=== PATIENT | female | born 1945 | race Asian ===

== ENCOUNTER 2019-11-15 04:25 | Observation (INO) | payer OTHER ==
[~2019-11-15] VITALS: Ht 162.6 cm; Wt 72.1 kg
[2019-11-15 04:33] VITALS: Ht 162.6 cm; Wt 72.1 kg
[2019-11-15 05:21] LABS: BASOPHIL % 0.3 % (0-2); PLATELET COUNT 182 x10^3mcL (130-400); RED CELL DISTRIBUTION WIDTH 12.3 % (11.5-14.5)
[2019-11-15 05:29] LABS: ALBUMIN 3.3 g/dL (3.4-5.0); ALKALINE PHOSPHATASE 182 U/L (46-116); ALT/SGPT 58 U/L (14-59); AST/SGOT 44 U/L (15-37); BILIRUBIN TOTAL 1.18 mg/dL (0.20-1.00); CALCIUM 9.1 mg/dL (8.5-10.1); CARBON DIOXIDE 23.5 mmol/L (21-32); CHLORIDE SERUM 94 mmol/L (98-107); POTASSIUM SERUM 3.7 mmol/L (3.5-5.1); SODIUM SERUM 128 mmol/L (136-145); TOTAL PROTEIN, SERUM 7.8 g/dL (6.4-8.2)
[2019-11-15 05:30] LABS: GLUCOSE SERUM 479 mg/dL (74-106)
[2019-11-15] MEDS ORDERED: ULTRAM50 MG (09:34)
[2019-11-15] MEDS ORDERED: FORTAMET500 M1 (09:34)
[2019-11-15 11:24] VITALS: BP 132/79
[2019-11-15 11:58] VITALS: BP 131/72
[2019-11-15 16:29] VITALS: BP 119/64
[2019-11-15 20:22] VITALS: BP 119/55
[2019-11-16 05:41] VITALS: BP 118/58
[2019-11-16 07:02] LABS: ALKALINE PHOSPHATASE 136 U/L (46-116); ALT/SGPT 43 U/L (14-59); AST/SGOT 29 U/L (15-37); BILIRUBIN TOTAL 1.03 mg/dL (0.20-1.00); CALCIUM 7.8 mg/dL (8.5-10.1); CARBON DIOXIDE 25.8 mmol/L (21-32); CHLORIDE SERUM 105 mmol/L (98-107); CREATININE SERUM 0.8 mg/dL (0.6-1.0); GLUCOSE SERUM 240 mg/dL (74-106); POTASSIUM SERUM 3.4 mmol/L (3.5-5.1); SODIUM SERUM 138 mmol/L (136-145); TOTAL PROTEIN, SERUM 6.7 g/dL (6.4-8.2)
[2019-11-16 07:05] LABS: ALBUMIN 2.5 g/dL (3.4-5.0)
[2019-11-16 07:15] LABS: BASOPHIL % 0.3 % (0-2); PLATELET COUNT 157 x10^3mcL (130-400); RED CELL DISTRIBUTION WIDTH 12.7 % (11.5-14.5)
[2019-11-16 08:12] VITALS: BP 125/61
[2019-11-16 11:43] VITALS: BP 131/67
[2019-11-16 15:22] VITALS: BP 131/67
[2019-11-16 16:04] VITALS: BP 125/54
== END 2019-11-16 16:32 | disposition home health service (06) ==
LOC: ED 04:25 → DU 09:03 → MU 09:03
PROVIDERS: Emergency Medicine; ADMIT Hospitalist; ATTEND Hospitalist
DX: S01.01XA Laceration without foreign body of scalp, initial encounter (principal); W19.XXXA Unspecified fall, initial encounter; Z91.81 History of falling; Y93.89 Activity, other specified; Y92.89 Other specified places as the place of occurrence of the external cause; Y99.8 Other external cause status; E11.9 Type 2 diabetes mellitus without complications
CPT/HCPCS: 82962; G0378; J1815; J2001; J7030

== ENCOUNTER 2020-01-11 10:57 | Emergency (ER) | payer OTHER ==
[~2020-01-11] VITALS: Ht 152.4 cm; Wt 68.9 kg
[~2020-01-11 10:57] MED LIST: FORTAMET500 M1; ULTRAM50 MG
[2020-01-11 11:48] VITALS: Ht 152.4 cm; Wt 68.9 kg
[2020-01-11 13:31] LABS: ALKALINE PHOSPHATASE 156 U/L (46-116); ALT/SGPT 63 U/L (14-59); AST/SGOT 39 U/L (15-37); BILIRUBIN TOTAL 0.8 mg/dL (0.20-1.00); CALCIUM 8.5 mg/dL (8.5-10.1); CARBON DIOXIDE 26.7 mmol/L (21-32); CHLORIDE SERUM 96 mmol/L (98-107); CREATININE SERUM 0.8 mg/dL (0.6-1.0); MAGNESIUM 2.1 mg/dL (1.8-2.4); PHOSPHOROUS 3.4 mg/dL (2.5-4.9); POTASSIUM SERUM 4.4 mmol/L (3.5-5.1); SODIUM SERUM 129 mmol/L (136-145); TOTAL PROTEIN, SERUM 6.8 g/dL (6.4-8.2)
[2020-01-11 13:38] LABS: ALBUMIN 3.1 g/dL (3.4-5.0)
[2020-01-11 13:41] LABS: GLUCOSE SERUM 497 mg/dL (74-106)
[2020-01-11 13:46] LABS: BASOPHIL % 0.3 % (0-2); PLATELET COUNT 138 x10^3mcL (130-400); RED CELL DISTRIBUTION WIDTH 12.5 % (11.5-14.5)
[2020-01-11 17:15] VITALS: BP 146/76
== END 2020-01-11 17:15 | disposition home or self-care (01) ==
LOC: ED 10:57
PROVIDERS: Emergency Medicine
DX: E11.65 Type 2 diabetes mellitus with hyperglycemia (principal); I10 Essential (primary) hypertension
CPT/HCPCS: 82962; J1815; J7030

== ENCOUNTER 2020-01-14 08:10 | Emergency (ER) | payer OTHER ==
[~2020-01-14] VITALS: Ht 162.6 cm; Wt 69.9 kg
[2020-01-14 08:27] VITALS: Ht 162.6 cm; Wt 69.9 kg
[2020-01-14 09:06] LABS: BASOPHIL % 0.3 % (0-2); PLATELET COUNT 189 x10^3mcL (130-400); RED CELL DISTRIBUTION WIDTH 12.4 % (11.5-14.5)
[2020-01-14 09:24] LABS: ALKALINE PHOSPHATASE 131 U/L (46-116); ALT/SGPT 49 U/L (14-59); AST/SGOT 65 U/L (15-37); BILIRUBIN TOTAL 1.16 mg/dL (0.20-1.00); CALCIUM 8.9 mg/dL (8.5-10.1); CARBON DIOXIDE 25.7 mmol/L (21-32); CHLORIDE SERUM 97 mmol/L (98-107); CREATININE SERUM 0.7 mg/dL (0.6-1.0); GLUCOSE SERUM 360 mg/dL (74-106); LIPASE 204 IU/L (73-393); SODIUM SERUM 129 mmol/L (136-145)
[2020-01-14 09:30] LABS: ALBUMIN 2.9 g/dL (3.4-5.0)
[2020-01-14 09:37] LABS: POTASSIUM SERUM 5.7 mmol/L (3.5-5.1)
[2020-01-14 11:47] VITALS: BP 128/77
== END 2020-01-14 11:47 | disposition home or self-care (01) ==
LOC: ED 08:10
PROVIDERS: Emergency Medicine
DX: E11.65 Type 2 diabetes mellitus with hyperglycemia (principal); I10 Essential (primary) hypertension
CPT/HCPCS: 82962; J1815; J2405; J7030

== ENCOUNTER 2020-02-15 08:41 | Observation (INO) | payer OTHER ==
[~2020-02-15] VITALS: Ht 157.5 cm; Wt 69.2 kg
[2020-02-15 09:36] LABS: BASOPHIL % 0.9 % (0.2-1.3); PLATELET COUNT 149 x10^3mcL (179-408); RED CELL DISTRIBUTION WIDTH 12.7 % (12.3-17.7)
[2020-02-15 09:41] LABS: CALCIUM 8.6 mg/dL (8.5-10.1); CARBON DIOXIDE 26.7 mmol/L (21-32); CHLORIDE SERUM 97 mmol/L (98-107); CREATININE SERUM 0.8 mg/dL (0.6-1.0); GLUCOSE SERUM 275 mg/dL (74-106); POTASSIUM SERUM 4.3 mmol/L (3.5-5.1); SODIUM SERUM 132 mmol/L (136-145)
[2020-02-15 09:46] LABS: ALKALINE PHOSPHATASE 124 U/L (46-116); ALT/SGPT 44 U/L (14-59); AST/SGOT 24 U/L (15-37); BILIRUBIN TOTAL 0.81 mg/dL (0.20-1.00); TOTAL PROTEIN, SERUM 6.8 g/dL (6.4-8.2)
[2020-02-15 10:00] LABS: ALBUMIN 3.1 g/dL (3.4-5.0)
[2020-02-15 11:06] LABS: UA SPECIFIC GRAVITY 1.015 (1.005-1.035); microscopic required? YES; urine erythrocyte TRACE (NEGATIVE)
[2020-02-15] MEDS ORDERED: TOPROL XL50 MG PO (22:02)
[2020-02-16 01:03] VITALS: BP 115/55
[2020-02-16 05:53] VITALS: BP 119/65
[2020-02-16 07:55] LABS: BASOPHIL % 0.4 % (0.2-1.3); PLATELET COUNT 146 x10^3mcL (179-408)
[2020-02-16 08:07] LABS: ALKALINE PHOSPHATASE 106 U/L (46-116); ALT/SGPT 46 U/L (14-59); AST/SGOT 32 U/L (15-37); BILIRUBIN TOTAL 0.8 mg/dL (0.20-1.00); CALCIUM 7.9 mg/dL (8.5-10.1); CARBON DIOXIDE 24.5 mmol/L (21-32); CHLORIDE SERUM 100 mmol/L (98-107); CREATININE SERUM 0.7 mg/dL (0.6-1.0); GLUCOSE SERUM 233 mg/dL (74-106); MAGNESIUM 1.8 mg/dL (1.8-2.4); POTASSIUM SERUM 3.6 mmol/L (3.5-5.1); SODIUM SERUM 135 mmol/L (136-145); TOTAL PROTEIN, SERUM 6.4 g/dL (6.4-8.2)
[2020-02-16 08:08] LABS: ALBUMIN 2.8 g/dL (3.4-5.0)
[2020-02-16 09:09] VITALS: BP 90/52
[2020-02-16 12:28] VITALS: BP 119/65
[2020-02-16 16:20] VITALS: BP 111/65
[2020-02-16 20:56] VITALS: BP 134/80
[2020-02-16 23:47] VITALS: Ht 157.5 cm; Wt 69.2 kg
[2020-02-17 05:25] VITALS: BP 115/61
[2020-02-17 08:41] VITALS: BP 136/79
[2020-02-17 11:11] LABS: BASOPHIL % 0.6 % (0.2-1.3); RED CELL DISTRIBUTION WIDTH 12.8 % (12.3-17.7)
[2020-02-17 11:46] LABS: ALBUMIN 2.4 g/dL (3.4-5.0); ALKALINE PHOSPHATASE 94 U/L (46-116); ALT/SGPT 51 U/L (14-59); AST/SGOT 49 U/L (15-37); BILIRUBIN TOTAL 0.83 mg/dL (0.20-1.00); CALCIUM 8.1 mg/dL (8.5-10.1); CARBON DIOXIDE 21.5 mmol/L (21-32); CHLORIDE SERUM 105 mmol/L (98-107); CREATININE SERUM 0.5 mg/dL (0.6-1.0); GLUCOSE SERUM 251 mg/dL (74-106); MAGNESIUM 1.9 mg/dL (1.8-2.4); POTASSIUM SERUM 4.2 mmol/L (3.5-5.1); SODIUM SERUM 137 mmol/L (136-145); TOTAL PROTEIN, SERUM 6.1 g/dL (6.4-8.2)
[2020-02-17 12:24] VITALS: BP 135/75
[2020-02-17 12:49] LABS: PLATELET COUNT 85 x10^3mcL (179-408)
[2020-02-17] MEDS ORDERED: DEXAMETHASONE6 MG PO (13:59)
[2020-02-17] MEDS ORDERED: VITAMIN C500 M6 PO (14:01)
[2020-02-17] MEDS ORDERED: ELIQUIS5 MG PO (14:01)
[2020-02-17] MEDS ORDERED: ZINC50 M5 PO (14:02)
[2020-02-17 16:19] VITALS: BP 147/75
[2020-02-18 01:25] VITALS: BP 136/79
[2020-02-18 09:21] LABS: BASOPHIL % 0.4 % (0.2-1.3); PLATELET COUNT 148 x10^3mcL (179-408); RED CELL DISTRIBUTION WIDTH 12.8 % (12.3-17.7)
[2020-02-18 09:49] LABS: ALBUMIN 2.6 g/dL (3.4-5.0); ALKALINE PHOSPHATASE 95 U/L (46-116); ALT/SGPT 49 U/L (14-59); AST/SGOT 27 U/L (15-37); BILIRUBIN TOTAL 0.79 mg/dL (0.20-1.00); CALCIUM 8.1 mg/dL (8.5-10.1); CARBON DIOXIDE 25.8 mmol/L (21-32); CHLORIDE SERUM 105 mmol/L (98-107); CREATININE SERUM 0.6 mg/dL (0.6-1.0); GLUCOSE SERUM 209 mg/dL (74-106); MAGNESIUM 1.8 mg/dL (1.8-2.4); POTASSIUM SERUM 3.4 mmol/L (3.5-5.1); SODIUM SERUM 139 mmol/L (136-145); TOTAL PROTEIN, SERUM 6.2 g/dL (6.4-8.2)
[2020-02-18 09:54] VITALS: BP 125/62
[2020-02-18 13:25] VITALS: BP 146/72
[2020-02-18 17:19] VITALS: BP 116/79
[2020-02-18 21:39] VITALS: BP 136/80
[2020-02-19 05:55] VITALS: BP 99/60
[2020-02-19 08:22] LABS: ALKALINE PHOSPHATASE 105 U/L (46-116); AST/SGOT 26 U/L (15-37); CALCIUM 7.9 mg/dL (8.5-10.1); CARBON DIOXIDE 24.6 mmol/L (21-32); CHLORIDE SERUM 103 mmol/L (98-107); CREATININE SERUM 0.7 mg/dL (0.6-1.0); GLUCOSE SERUM 198 mg/dL (74-106); MAGNESIUM 1.9 mg/dL (1.8-2.4); POTASSIUM SERUM 3.5 mmol/L (3.5-5.1); SODIUM SERUM 137 mmol/L (136-145); TOTAL PROTEIN, SERUM 6.9 g/dL (6.4-8.2)
[2020-02-19 08:23] LABS: BASOPHIL % 0.3 % (0.2-1.3); PLATELET COUNT 153 x10^3mcL (179-408); RED CELL DISTRIBUTION WIDTH 12.6 % (12.3-17.7)
[2020-02-19 08:34] LABS: ALBUMIN 2.9 g/dL (3.4-5.0)
[2020-02-19 09:06] VITALS: BP 126/74
[2020-02-19 13:33] LABS: ALT/SGPT 52 U/L (14-59)
[2020-02-19 13:50] VITALS: BP 142/83
[2020-02-19 16:18] VITALS: BP 132/58
[2020-02-19 21:25] VITALS: BP 128/70
[2020-02-20 06:11] VITALS: BP 149/70
[2020-02-20 09:36] VITALS: BP 150/78
[2020-02-20 12:11] VITALS: BP 128/78
[2020-02-20 20:15] LABS: BASOPHIL % 0.5 % (0.2-1.3); RED CELL DISTRIBUTION WIDTH 12.7 % (12.3-17.7)
[2020-02-20 22:04] LABS: PLATELET COUNT 125 x10^3mcL (179-408)
[2020-02-20 22:16] VITALS: BP 130/70
[2020-02-21 06:41] VITALS: BP 126/69
[2020-02-21 08:21] VITALS: BP 128/64
[2020-02-21 11:08] VITALS: BP 143/78
[2020-02-21 16:29] VITALS: BP 130/70
[2020-02-21 21:03] VITALS: BP 136/75
[2020-02-22] VITALS (11 sets, daily range): BP systolic 105–125; BP diastolic 65–80
== END 2020-02-22 22:10 ==
LOC: ED 08:41 → MU 17:49
PROVIDERS: Emergency Medicine; ADMIT Hospitalist; ATTEND Hospitalist
DX: R53.1 Weakness (principal); R13.0 Aphagia; E11.9 Type 2 diabetes mellitus without complications; I10 Essential (primary) hypertension
CPT/HCPCS: 82962; 83880; 97110-GP; 97112-GP; 97530-GP; G0378; J0696; J2405; J7030; J7060